=== PATIENT | female | born 1995 | race Caucasian/White ===

== ENCOUNTER 2023-08-07 14:44 | Emergency (ER) | payer OTHER ==
[~2023-08-07] VITALS: Ht 160 cm; Wt 47.6 kg
[2023-08-07 15:01] VITALS: BP 127/81; TEMP 98.1
[2023-08-07] MEDS ORDERED: BENZONATATE 100 MG CAPSULE PO PRN (18:00)
[2023-08-07] MEDS ORDERED: ACETAMINOPHEN ES 500 MG TABLET PO ONE (18:00)
[2023-08-07] MEDS ORDERED: BENZONATATE 100 MG CAPSULE PO ONE (18:06)
[2023-08-07] MEDS ORDERED: ACETAMINOPHEN ES 500 MG TABLET ONE (18:07)
[2023-08-07] MEDS ORDERED: BENZ-13 PO (19:30)
[2023-08-07] MEDS ORDERED: ACET-2605 PO (19:30)
[2023-08-07 19:59] VITALS: O2SAT 100
== END 2023-08-07 20:01 | disposition home or self-care (01) ==
LOC: ER 14:51
DX: J06.9 Acute upper respiratory infection, unspecified (principal); Z20.822 Contact with and (suspected) exposure to COVID-19; Z60.2 Problems related to living alone
CPT/HCPCS: 71045-TC